=== PATIENT | male | born 1950 | race Caucasian/White ===

== ENCOUNTER 2020-04-14 15:45 | Inpatient (IN) | payer MEDICARE, MEDICAID ==
[~2020-04-14] VITALS: Ht 172.7 cm; Wt 97.5 kg
[~2020-04-14 15:45] MED LIST: ASPI-1497 PO; BRIM15DR2 OP; BUSP10TA3 PO; CLON0.1T PO; GABA-529 PO; KETO5DRO37 OP; TIMO15DR12 OP
[2020-04-14] MEDS ORDERED: SODIUM CHLORIDE 0.9% 1,000 ML IV ONE (16:58)
[2020-04-14 17:22] LABS: BASOPHILS % 0.5 % (0.0-2.0); EOSINOPHILS % 0.7 % (0.0-5.0); HEMATOCRIT. 41.8 % (42.0-52.0); HEMOGLOBIN. 13.6 g/dL (14.0-18.0); LYMPHOCYTES % 38.2 % (20.0-50.0); MEAN CORPUSCULAR HEMOGLOBIN 33.2 pg (28.0-32.0); MEAN CORPUSCULAR VOLUME 101.9 fL (80.0-94.0); MEAN PLATELET VOLUME 9.1 fl (7.4-10.4); MONOCYTES % 6.4 % (2.0-8.0); NEUTROPHILS % 54.2 % (40.0-76.0); PLATELET 119 x1000/uL (130-400); RED CELL DISTRIBUTION WIDTH 15.1 % (11.6-14.6)
[2020-04-14 17:25] LABS: CLARITY URINE CLEAR (CLEAR); COLOR URINE DARK YELLOW (YELLOW); KETONES URINE NEGATIVE (NEGATIVE); LEUKOCYTE ESTERASE URINE NEGATIVE (NEGATIVE); NITRITE URINE NEGATIVE (NEGATIVE); OCCULT BLOOD URINE NEGATIVE (NEGATIVE); PROTEIN URINE NEGATIVE (NEGATIVE); SPECIFIC GRAVITY URINE 1.031 (1.005-1.030)
[2020-04-14 17:27] LABS: CHLORIDE 119 mEq/L (98-107)
[2020-04-14 17:29] LABS: INR 1.1; PROTHROMBIN TIME 11.8 sec (9.6-11.0)
[2020-04-14] MEDS ORDERED: DEXTROSE 5% WATER 1,000 ML IV SCH (21:26)
[2020-04-14] MEDS ORDERED: ONDANSETRON HCL 4MG/2ML INJ IV PRN (21:30)
[2020-04-14] MEDS ORDERED: CLONIDINE 0.1MG TABLET PO PRN (21:30)
[2020-04-14] MEDS ORDERED: ACETAMINOPHEN 650MG SUPP PR PRN ×2 (21:30)
[2020-04-14] MEDS ORDERED: GUAIFENESIN 200MG/10ML SUGAR FREE UDC PO PRN (21:30)
[2020-04-14] MEDS ORDERED: DOCUSATE SODIUM 100MG CAPSULE PO PRN (21:30)
[2020-04-14] MEDS ORDERED: DIPHENHYDRAMINE 50MG/ML VIAL IV PRN (21:30)
[2020-04-14] MEDS ORDERED: ACETAMINOPHEN 325MG TABLET PO PRN ×2 (21:30)
[2020-04-14] MEDS ORDERED: MAGNESIUM/ALUMINUM HYDROXIDE/SIMETHICONE 30ML UDC PO PRN (21:30)
[2020-04-14] MEDS ORDERED: ACETAMINOPHEN 650MG/20.3ML UDC GT PRN ×2 (21:30)
[2020-04-14] MEDS ORDERED: NA PHOS,M-B/NA PHOS,DI-BA ENEMA 118ML PR PRN (21:30)
[2020-04-14] MEDS: DEXT 5%/0.2% NACL KCL 20MEQ/L 1,000 ML IV SCH (21:39)
[2020-04-14] MEDS ORDERED: LEVOFLOXACIN 500MG PREMIX 100 ML IV NR (22:00)
[2020-04-14] MEDS: SODIUM CHLORIDE 0.9% INJ 3ML FLUSH IVF SCH (22:27)
[2020-04-15] VITALS (7 sets, daily range): BP systolic 93–148; BP diastolic 41–66
[2020-04-15] MEDS ORDERED: HYDR26CR TP (00:54)
[2020-04-15] MEDS ORDERED: METF-815 MT (00:54)
[2020-04-15] MEDS ORDERED: FAMO40TA70 MT (00:54)
[2020-04-15] MEDS ORDERED: DOCU250C69 MT (00:54)
[2020-04-15] MEDS ORDERED: PROM6.2514 MT (00:54)
[2020-04-15] MEDS ORDERED: FENO48TA9 MT (00:54)
[2020-04-15] MEDS ORDERED: FURO-152 MT (00:54)
[2020-04-15] MEDS ORDERED: ESCI20TA MT (00:54)
[2020-04-15] MEDS ORDERED: SIMV-43 MT (00:54)
[2020-04-15] MEDS ORDERED: DIVA250T4 PO (00:54)
[2020-04-15] MEDS ORDERED: ACET-2708 MT (00:54)
[2020-04-15] MEDS ORDERED: ACET250T3 MT (00:54)
[2020-04-15] MEDS ORDERED: BUSP10TA3 MT (00:54)
[2020-04-15] MEDS ORDERED: MOM PO (00:54)
[2020-04-15] MEDS ORDERED: OLAN20TA34 PO (00:54)
[2020-04-15] MEDS ORDERED: TOPUD MT (00:54)
[2020-04-15] MEDS: DEXT 5%/0.2% NACL KCL 20MEQ/L 1,000 ML IV SCH (04:18)
[2020-04-15 05:32] LABS: CHLORIDE 124 mEq/L (98-107)
[2020-04-15 06:00] LABS: PHOSPHORUS 2.8 mg/dL (2.5-4.9)
[2020-04-15 06:04] LABS: HDL CHOLESTEROL 21 mg/dL (40-59); LDL CHOLESTEROL 81 mg/dL (5-100)
[2020-04-15 06:16] LABS: BASOPHILS % 0.4 % (0.0-2.0); EOSINOPHILS % 0.6 % (0.0-5.0); HEMATOCRIT. 37.2 % (42.0-52.0); HEMOGLOBIN. 12.4 g/dL (14.0-18.0); LYMPHOCYTES % 15.9 % (20.0-50.0); MEAN CORPUSCULAR HEMOGLOBIN 33.9 pg (28.0-32.0); MEAN CORPUSCULAR VOLUME 102.1 fL (80.0-94.0); MEAN PLATELET VOLUME 9.2 fl (7.4-10.4); MONOCYTES % 6.4 % (2.0-8.0); NEUTROPHILS % 76.7 % (40.0-76.0); PLATELET 103 x1000/uL (130-400); RED BLOOD CELL COUNT 3.64 mill/uL (4.7-6.1); RED CELL DISTRIBUTION WIDTH 14.9 % (11.6-14.6)
[2020-04-15] MEDS: SODIUM CHLORIDE 0.9% INJ 3ML FLUSH IVF SCH ×3 (06:32→21:51)
[2020-04-15] MEDS ORDERED: DEXTROSE 50% WATER 50ML SYRINGE IV PRN (06:45)
[2020-04-15] MEDS ORDERED: BLOOD SUGAR DIAGNOSTIC STRIP TEST SCH (07:20)
[2020-04-15] MEDS ORDERED: INSULIN LISPRO 100 UNITS/ML SUBCUT SCH (07:50)
[2020-04-15] MEDS: ENOXAPARIN 30MG/0.3ML SYR SUBCUT SCH (09:27)
[2020-04-15 09:39] LABS: *BARBITURATES SCREEN URINE NEGATIVE (NEGATIVE); *BENZODIAZEPINES SCREEN URINE NEGATIVE (NEGATIVE)
[2020-04-15 09:41] LABS: *AMPHETAMINES SCREEN URINE NEGATIVE (NEGATIVE); *COCAINE SCREEN URINE NEGATIVE (NEGATIVE); CANNABINOID URINE SCREEN NEGATIVE (NEGATIVE); METHADONE URINE SCREEN NEGATIVE (NEGATIVE); OPIATES URINE SCREEN NEGATIVE (NEGATIVE); PHENCYCLIDINE URINE SCREEN NEGATIVE (NEGATIVE)
[2020-04-15 12:39] LABS: T4 FREE 1.05 ng/dL (0.76-1.46)
[2020-04-15] MEDS ORDERED: ZYDS20 MT (12:41)
[2020-04-15] MEDS: FENOFIBRATE NANOCRYSTALLIZED 48MG TABLET PO SCH (13:55)
[2020-04-15] MEDS: VALPROIC ACID 250MG CAPSULE PO SCH (13:55)
[2020-04-15] MEDS: DEXT 5% WATER + KCL 20MEQ/L 1,000 ML IV SCH ×2 (13:56→21:52)
[2020-04-15] MEDS: BRIMONIDINE 0.2% OPHTH DROPS 5ML BOTHEYE SCH ×2 (14:00→21:51)
[2020-04-15 14:49] LABS: CREATINE KINASE 116 IU/L (39-308); CREATINE KINASE MB FRACTION 1.3 ng/mL (0.5-3.6)
[2020-04-15] MEDS ORDERED: FAMOTIDINE 40MG TABLET PO PRN (17:30)
[2020-04-15] MEDS ORDERED: ACETAZOLAMIDE 250MG TABLET PO SCH (18:30)
[2020-04-15] MEDS ORDERED: BUSPIRONE HCL 10MG TABLET PO SCH (21:00)
[2020-04-15] MEDS ORDERED: LEVOFLOXACIN 250MG PREMIX 50 ML IV SCH (21:00)
[2020-04-15] MEDS: ATORVASTATIN CALCIUM 10MG TABLET PO SCH (21:50)
[2020-04-15] MEDS: FAMOTIDINE 20MG TABLET PO SCH (21:50)
[2020-04-15] MEDS: BUSPIRONE HCL 10MG TABLET PO SCH (21:50)
[2020-04-15] MEDS: VALPROATE SODIUM 250MG/5ML UDC PO SCH (21:51)
[2020-04-15] MEDS: LEVOFLOXACIN 250MG PREMIX 50 ML IV SCH (21:51)
[2020-04-16] VITALS: BP 135/64
[2020-04-16 00:44] LABS: CREATINE KINASE 95 IU/L (39-308); CREATINE KINASE MB FRACTION 1.6 ng/mL (0.5-3.6)
[2020-04-16 04:00] VITALS: BP 115/61
[2020-04-16] MEDS: SODIUM CHLORIDE 0.9% INJ 3ML FLUSH IVF SCH ×3 (06:00→21:07)
[2020-04-16] MEDS: DEXT 5% WATER + KCL 20MEQ/L 1,000 ML IV SCH (06:10)
[2020-04-16] MEDS: BRIMONIDINE 0.2% OPHTH DROPS 5ML BOTHEYE SCH ×3 (06:15→21:06)
[2020-04-16 06:51] LABS: BASOPHILS % 0.3 % (0.0-2.0); EOSINOPHILS % 0.7 % (0.0-5.0); HEMATOCRIT. 33.4 % (42.0-52.0); HEMOGLOBIN. 11.4 g/dL (14.0-18.0); LYMPHOCYTES % 26.3 % (20.0-50.0); MEAN CORPUSCULAR HEMOGLOBIN 34.3 pg (28.0-32.0); MEAN CORPUSCULAR VOLUME 100.4 fL (80.0-94.0); MEAN PLATELET VOLUME 8.9 fl (7.4-10.4); MONOCYTES % 6.1 % (2.0-8.0); NEUTROPHILS % 66.6 % (40.0-76.0); PLATELET 108 x1000/uL (130-400); RED BLOOD CELL COUNT 3.33 mill/uL (4.7-6.1); RED CELL DISTRIBUTION WIDTH 14.3 % (11.6-14.6)
[2020-04-16 06:56] LABS: CHLORIDE 121 mEq/L (98-107)
[2020-04-16 07:03] LABS: PHOSPHORUS 1.5 mg/dL (2.5-4.9)
[2020-04-16 07:05] LABS: CREATINE KINASE 91 IU/L (39-308); CREATINE KINASE MB FRACTION 1.4 ng/mL (0.5-3.6)
[2020-04-16 08:00] VITALS: BP 128/62
[2020-04-16] MEDS ORDERED: FUROSEMIDE 20MG TABLET PO SCH (09:00)
[2020-04-16] MEDS ORDERED: DIVALPROEX SODIUM 250MG DR TABLET PO SCH (09:00)
[2020-04-16] MEDS ORDERED: CLONIDINE 0.1MG TABLET PO SCH (09:00)
[2020-04-16] MEDS ORDERED: FENOFIBRATE NANOCRYSTALLIZED 48MG TABLET PO SCH (09:00)
[2020-04-16] MEDS: FAMOTIDINE 20MG TABLET PO SCH ×2 (09:31→21:05)
[2020-04-16] MEDS: BUSPIRONE HCL 10MG TABLET PO SCH ×2 (09:31→21:05)
[2020-04-16] MEDS: ASPIRIN 81MG EC TABLET PO SCH (09:31)
[2020-04-16] MEDS: ENOXAPARIN 30MG/0.3ML SYR SUBCUT SCH (09:31)
[2020-04-16] MEDS: KETOROLAC TROMETHAMINE 0.5% OPHTH 3ML BOTHEYE SCH (09:31)
[2020-04-16] MEDS: VALPROIC ACID 250MG CAPSULE PO SCH (09:31)
[2020-04-16] MEDS: DOCUSATE SODIUM 250MG CAPSULE PO SCH ×2 (09:31→18:42)
[2020-04-16] MEDS: GABAPENTIN 100MG CAPSULE PO SCH (09:32)
[2020-04-16] MEDS: FENOFIBRATE NANOCRYSTALLIZED 48MG TABLET PO SCH (09:32)
[2020-04-16] MEDS ORDERED: POTASSIUM PHOS,M-BASIC-D-BASIC 15 MMOL in DEXT 5% WATER 245 ML IV NR (11:30)
[2020-04-16 12:00] VITALS: BP 132/70
[2020-04-16] MEDS: DEXTROSE 5% WATER 1,000 ML IV SCH ×2 (12:34→21:13)
[2020-04-16 16:00] VITALS: BP 125/74
[2020-04-16] MEDS ORDERED: POTASSIUM PHOS,M-BASIC-D-BASIC 15 MMOL in DEXT 5% WATER 245 ML IV SCH (16:00)
[2020-04-16 20:00] VITALS: BP 119/96
[2020-04-16] MEDS ORDERED: MEDICATION NOT ON FORMULARY EA (Simvastatin 1 TAB) MT SCH (21:00)
[2020-04-16] MEDS ORDERED: OLANZAPINE MT SCH (21:00)
[2020-04-16] MEDS: ATORVASTATIN CALCIUM 10MG TABLET PO SCH (21:05)
[2020-04-16] MEDS: OLANZAPINE 10MG TABLET PO SCH (21:05)
[2020-04-16] MEDS: LEVOFLOXACIN 250MG PREMIX 50 ML IV SCH (21:06)
[2020-04-16] MEDS: VALPROATE SODIUM 250MG/5ML UDC PO SCH ×2 (21:25→21:26)
[2020-04-17] VITALS (7 sets, daily range): BP systolic 110–161; BP diastolic 55–82
[2020-04-17 05:57] LABS: HEMATOCRIT. 33.1 % (42.0-52.0); HEMOGLOBIN. 11.3 g/dL (14.0-18.0); MEAN CORPUSCULAR HEMOGLOBIN 34.3 pg (28.0-32.0); MEAN CORPUSCULAR VOLUME 100.2 fL (80.0-94.0); MEAN PLATELET VOLUME 8.8 fl (7.4-10.4); PLATELET 109 x1000/uL (130-400); RED BLOOD CELL COUNT 3.31 mill/uL (4.7-6.1); RED CELL DISTRIBUTION WIDTH 14.4 % (11.6-14.6)
[2020-04-17 06:10] LABS: CHLORIDE 114 mEq/L (98-107)
[2020-04-17 06:15] LABS: PHOSPHORUS 2.3 mg/dL (2.5-4.9)
[2020-04-17] MEDS: SODIUM CHLORIDE 0.9% INJ 3ML FLUSH IVF SCH ×3 (06:40→21:36)
[2020-04-17] MEDS: BRIMONIDINE 0.2% OPHTH DROPS 5ML BOTHEYE SCH ×3 (06:40→21:36)
[2020-04-17] MEDS: DEXTROSE 5% WATER 1,000 ML IV SCH ×3 (07:45→19:04)
[2020-04-17] MEDS: KETOROLAC TROMETHAMINE 0.5% OPHTH 3ML BOTHEYE SCH (09:31)
[2020-04-17] MEDS: BUSPIRONE HCL 10MG TABLET PO SCH ×2 (09:31→21:29)
[2020-04-17] MEDS: ENOXAPARIN 30MG/0.3ML SYR SUBCUT SCH (09:31)
[2020-04-17] MEDS: FAMOTIDINE 20MG TABLET PO SCH ×2 (09:31→21:30)
[2020-04-17] MEDS: FENOFIBRATE NANOCRYSTALLIZED 48MG TABLET PO SCH (09:31)
[2020-04-17] MEDS: DOCUSATE SODIUM 250MG CAPSULE PO SCH ×2 (09:31→16:34)
[2020-04-17] MEDS: ASPIRIN 81MG EC TABLET PO SCH (09:31)
[2020-04-17] MEDS: VALPROIC ACID 250MG CAPSULE PO SCH (09:31)
[2020-04-17] MEDS: GABAPENTIN 100MG CAPSULE PO SCH (09:31)
[2020-04-17] MEDS ORDERED: POTASSIUM-SODIUM PHOSPHATE POWDER PACKET PO NR (12:15)
[2020-04-17] MEDS ORDERED: MAGNESIUM 2 G PREMIX 50 ML IV NR (14:00)
[2020-04-17] MEDS: POTASSIUM-SODIUM PHOSPHATE POWDER PACKET PO SCH (16:35)
[2020-04-17 17:21] LABS: PLATELET ESTIMATE DECREASED
[2020-04-17] MEDS: VALPROATE SODIUM 250MG/5ML UDC PO SCH (21:29)
[2020-04-17] MEDS: ATORVASTATIN CALCIUM 10MG TABLET PO SCH (21:30)
[2020-04-17] MEDS: OLANZAPINE 10MG TABLET PO SCH (21:30)
[2020-04-17] MEDS: LEVOFLOXACIN 250MG PREMIX 50 ML IV SCH (21:36)
[2020-04-18] VITALS: BP 134/80
[2020-04-18] MEDS: DEXTROSE 5% WATER 1,000 ML IV SCH (03:03)
[2020-04-18 04:00] VITALS: BP 136/71
[2020-04-18] MEDS: SODIUM CHLORIDE 0.9% INJ 3ML FLUSH IVF SCH ×2 (05:03→14:31)
[2020-04-18] MEDS: BRIMONIDINE 0.2% OPHTH DROPS 5ML BOTHEYE SCH ×2 (05:05→14:31)
[2020-04-18 06:24] LABS: HEMATOCRIT. 31.9 % (42.0-52.0); MEAN CORPUSCULAR VOLUME 98.5 fL (80.0-94.0); MEAN PLATELET VOLUME 8.8 fl (7.4-10.4); PLATELET 116 x1000/uL (130-400); RED BLOOD CELL COUNT 3.24 mill/uL (4.7-6.1); RED CELL DISTRIBUTION WIDTH 14.1 % (11.6-14.6)
[2020-04-18 07:00] LABS: CHLORIDE 109 mEq/L (98-107)
[2020-04-18 08:04] VITALS: BP 132/79
[2020-04-18] MEDS: FENOFIBRATE NANOCRYSTALLIZED 48MG TABLET PO SCH (08:19)
[2020-04-18] MEDS: POTASSIUM-SODIUM PHOSPHATE POWDER PACKET PO SCH ×2 (08:19→17:28)
[2020-04-18] MEDS: BUSPIRONE HCL 10MG TABLET PO SCH (08:20)
[2020-04-18] MEDS: VALPROIC ACID 250MG CAPSULE PO SCH (08:20)
[2020-04-18] MEDS: DOCUSATE SODIUM 250MG CAPSULE PO SCH ×2 (08:20→17:28)
[2020-04-18] MEDS: ASPIRIN 81MG EC TABLET PO SCH (08:20)
[2020-04-18] MEDS: FAMOTIDINE 20MG TABLET PO SCH (08:20)
[2020-04-18] MEDS: GABAPENTIN 100MG CAPSULE PO SCH (08:20)
[2020-04-18] MEDS: KETOROLAC TROMETHAMINE 0.5% OPHTH 3ML BOTHEYE SCH (08:22)
[2020-04-18] MEDS ORDERED: AMLODIPINE 2.5MG TABLET PO SCH (09:00)
[2020-04-18] MEDS ORDERED: ENOXAPARIN 40MG/0.4ML SYR SUBCUT SCH (09:00)
[2020-04-18 09:05] LABS: PLATELET ESTIMATE DECREASED
[2020-04-18] MEDS ORDERED: POTASSIUM PHOS,M-BASIC-D-BASIC 20 MMOL in DEXT 5% WATER 243.3333 ML IV NR (10:00)
[2020-04-18] MEDS ORDERED: LEVOFLOXACIN 250MG TABLET PO SCH (11:00)
[2020-04-18 12:03] VITALS: BP 127/73
[2020-04-18 16:04] VITALS: BP 132/70
[2020-04-18 17:02] VITALS: BP 132/70
== END 2020-04-18 18:06 | DRG 682 ==
LOC: ER 16:03 → 6WST 18:32 → EDBEDREQ 18:40 → EDBEDREQSVC 18:46 → EDBEDREQTM 19:26 → ENRESERV 22:04
PROVIDERS: ADMIT Family Medicine; ATTEND Family Medicine
DX: N17.0 Acute kidney failure with tubular necrosis (principal); G93.41 Metabolic encephalopathy; E44.1 Mild protein-calorie malnutrition; E87.0 Hyperosmolality and hypernatremia; E87.1 Hypo-osmolality and hyponatremia; E11.9 Type 2 diabetes mellitus without complications; E86.0 Dehydration; F03.90 Unspecified dementia, unspecified severity, without behavioral disturbance, psychotic disturbance, mood disturbance, and anxiety; F20.9 Schizophrenia, unspecified; I10 Essential (primary) hypertension; J44.9 Chronic obstructive pulmonary disease, unspecified; I48.91 Unspecified atrial fibrillation; I49.3 Ventricular premature depolarization; E83.39 Other disorders of phosphorus metabolism; F32.9 Major depressive disorder, single episode, unspecified; F99 Mental disorder, not otherwise specified; R09.02 Hypoxemia; N28.1 Cyst of kidney, acquired; K59.00 Constipation, unspecified; K21.9 Gastro-esophageal reflux disease without esophagitis; D64.9 Anemia, unspecified; F41.9 Anxiety disorder, unspecified; M62.50 Muscle wasting and atrophy, not elsewhere classified, unspecified site; M54.5 Low back pain; R79.89 Other specified abnormal findings of blood chemistry; E78.5 Hyperlipidemia, unspecified; E78.1 Pure hyperglyceridemia; Z87.891 Personal history of nicotine dependence; Z79.82 Long term (current) use of aspirin; Z79.899 Other long term (current) drug therapy; Z79.84 Long term (current) use of oral hypoglycemic drugs; Z82.49 Family history of ischemic heart disease and other diseases of the circulatory system; Z91.81 History of falling; Z74.01 Bed confinement status
CPT/HCPCS: 36415; 71045; 76770; 80048; 80053; 80061; 80305; 81003; 82140; 82550; 82553; 82962; 83036; 83605; 83735; 83880; 84100; 84145; 84439; 84443; 84484; 85025; 85379; 92610; 93005; 93306; 99285; J1650; J1956; J3475; J3490; J7030; J7060; J7070